=== PATIENT | male | born 1985 ===

== ENCOUNTER 2021-02-06 00:52 | Emergency (ER) | payer SELFPAY ==
[~2021-02-06] VITALS: Ht 175.3 cm; Wt 72.6 kg
--- NOTE | 2021-02-06 01:20 | NUR ---
PT BIB [facility] C/O VISUAL AND AUDITORY HALLUCINATIONS X2 DAYS (TOOK METH). DENIES SI, DENIES CP/PRESSURE. NO SOB OR LABORED BREATHING, AMBULATORY, STEADY GAIT.
--- NOTE | 2021-02-06 01:40 | NUR ---
DR. MARTIN AT BEDSIDE, MSE IN PROGRESS.
[2021-02-06] MEDS ORDERED: HALOPERIDOL 0.5 MG TABLET PO ONE (02:00)
[2021-02-06] MEDS ORDERED: LORAZEPAM 0.5 MG TABLET PO ONE (02:00)
[2021-02-06] MEDS ORDERED: [UNRECOGNIZED DRUG - CODE] PO (02:07)
[2021-02-06] MEDS ORDERED: [UNRECOGNIZED DRUG - CODE] TP (02:07)
[2021-02-06] MEDS ORDERED: LORA-259 PO (02:07)
[2021-02-06] MEDS ORDERED: LORAZEPAM 1 MG TABLET ONE (02:14)
[2021-02-06] MEDS ORDERED: HALOPERIDOL 5 MG TABLET ONE (02:14)
--- NOTE | 2021-02-06 02:17 | NUR ---
Patient discharged to home in stable condition. Denies any pain/discomfort upon discharge. Written and verbal after care instructions given. Patient verbalizes understanding of instructions. Stressed follow up or return to ER for worsening s/s. steady gait. Denies any SI, auditory/visual hallucinations.
[2021-02-06 02:18] VITALS: BP 132/80
== END 2021-02-06 02:19 | disposition home or self-care (01) ==
LOC: ER 00:55
DX: F15.151 Other stimulant abuse with stimulant-induced psychotic disorder with hallucinations (principal); F17.210 Nicotine dependence, cigarettes, uncomplicated; F31.9 Bipolar disorder, unspecified; F20.9 Schizophrenia, unspecified; B36.0 Pityriasis versicolor
CPT/HCPCS: A4663